=== PATIENT | female | born 1950 | race African-American/Black ===

== ENCOUNTER 2019-12-10 01:55 | Emergency (ER) | payer MEDICARE, MEDICAID ==
[~2019-12-10] VITALS: Ht 167.6 cm; Wt 98.0 kg
[2019-12-10 01:58] VITALS: BP 150/80
[2019-12-10] MEDS ORDERED: CYCLOBENZAPRINE 10MG TABLET PO ONE (02:30)
[2019-12-10] MEDS ORDERED: ACETAMINOPHEN 325MG TABLET PO ONE (02:30)
[2019-12-10] MEDS ORDERED: KETOROLAC 30MG/ML VIAL IM ONE (03:45)
== END 2019-12-10 05:03 | disposition home or self-care (01) ==
LOC: ER 01:55
DX: M79.602 Pain in left arm (principal); I10 Essential (primary) hypertension
CPT/HCPCS: 93005; 96372; 99283; J1885

== ENCOUNTER 2020-09-17 05:43 | Emergency (ER) | payer MEDICARE, MEDICAID ==
[~2020-09-17] VITALS: Ht 167.6 cm; Wt 90.0 kg
[2020-09-17] MEDS ORDERED: HYDR50CA MT (06:41)
[2020-09-17] MEDS ORDERED: HYDROXYZINE 25MG TABLET PO ONE (06:45)
[2020-09-17 07:30] VITALS: BP 160/89
== END 2020-09-17 08:34 | disposition home or self-care (01) ==
LOC: ER 05:43
DX: L30.9 Dermatitis, unspecified (principal); L29.9 Pruritus, unspecified; F41.9 Anxiety disorder, unspecified; F03.90 Unspecified dementia, unspecified severity, without behavioral disturbance, psychotic disturbance, mood disturbance, and anxiety; F32.9 Major depressive disorder, single episode, unspecified; I10 Essential (primary) hypertension; Z88.2 Allergy status to sulfonamides
CPT/HCPCS: 93005; 99283

== ENCOUNTER 2021-10-25 19:48 | Emergency (ER) | payer MEDICARE, MEDICAID ==
[~2021-10-25] VITALS: Ht 167.6 cm; Wt 94.4 kg
[~2021-10-25 19:48] MED LIST: HYDR50CA MT
[2021-10-25] MEDS ORDERED: MORPHINE SULFATE 4 MG/ML CPJ (NOT FOR IM USE) IV STA (20:18)
[2021-10-25 20:54] LABS: BASOPHILS % 0.3 % (0.0-2.0); EOSINOPHILS % 1.9 % (0.0-5.0); HEMATOCRIT. 38.6 % (36.0-48.0); HEMOGLOBIN. 12.4 g/dL (12.0-16.0); LYMPHOCYTES % 35.4 % (20.0-50.0); MEAN CORPUSCULAR HEMOGLOBIN 25.9 pg (28.0-32.0); MEAN CORPUSCULAR VOLUME 80.5 fL (81.0-99.0); MEAN PLATELET VOLUME 9.6 fl (7.4-10.4); MONOCYTES % 12.6 % (2.0-8.0); NEUTROPHILS % 49.8 % (40.0-76.0); PLATELET 160 x1000/uL (130-400); RED CELL DISTRIBUTION WIDTH 15.8 % (11.6-14.6)
[2021-10-25 21:02] LABS: CHLORIDE 107 mEq/L (98-107)
[2021-10-25] MEDS ORDERED: LABETALOL 5MG/ML SYR 20 MG/4 ML SYRINGE IV NR (21:07)
[2021-10-25] MEDS ORDERED: LABETALOL HCL VIAL 20 MG/4 ML VIAL IV ONE (21:15)
[2021-10-25 23:58] VITALS: BP 145/82
== END 2021-10-26 00:49 | disposition home or self-care (01) ==
LOC: ER 19:48 → CANBEDREQ 23:57 → ER 10-26 00:49
DX: R07.89 Other chest pain (principal); R51.9 Headache, unspecified; F41.9 Anxiety disorder, unspecified; I10 Essential (primary) hypertension; Z90.49 Acquired absence of other specified parts of digestive tract
CPT/HCPCS: 36415; 71045; 80053; 83880; 84484; 85025; 93005; 96374; 96375; 99285; J2270; J3490

== ENCOUNTER 2024-11-11 10:22 | Inpatient (IN) | payer MEDICARE, MEDICAID ==
[~2024-11-11] VITALS: Ht 154.9 cm; Wt 90.9 kg
[2024-11-11] MEDS: MORPHINE SULFATE 4 MG/ML INJ (FOR IV/IM USE) IV ONE (11:36)
[2024-11-11 12:20] LABS: BASOPHILS % 0.2 % (0.0-2.0); EOSINOPHILS % 2.4 % (0.0-5.0); HEMATOCRIT. 36.7 % (36.0-48.0); HEMOGLOBIN. 11.9 g/dL (12.0-16.0); LYMPHOCYTES % 32.4 % (20.0-50.0); MEAN CORPUSCULAR HGB CONC 32.4 g/dL (31.0-37.0); MEAN CORPUSCULAR VOLUME 80.2 fL (81.0-99.0); MONOCYTES % 12.5 % (2.0-8.0); NEUTROPHILS % 52.5 % (40.0-76.0); PLATELET 169 x1000/uL (130-400); RED BLOOD CELL COUNT 4.58 mill/uL (4.2-5.4); RED CELL DISTRIBUTION WIDTH 15.7 % (11.6-14.6); WHITE BLOOD COUNT 3.6 x1000/uL (4.5-11.0)
[2024-11-11 12:32] LABS: CARBON DIOXIDE 26 mEq/L (21-32); CHLORIDE 108 mEq/L (98-107); POTASSIUM 3.9 mEq/L (3.5-5.1); SODIUM 139 mEq/L (136-145)
[2024-11-11 12:33] LABS: CALCIUM 9.5 mg/dL (8.7-10.4)
[2024-11-11 12:38] LABS: CREATININE 0.9 mg/dL (0.6-1.0); GLUCOSE 98 mg/dL (70-105); UREA NITROGEN BLOOD 15 mg/dL (9-23)
[2024-11-11 12:39] LABS: TROPONIN I HIGH SENSITIVITY 11 ng/L (3.0-34)
[2024-11-11] MEDS: HYDRALAZINE 20MG/ML VIAL IV PRN (14:09)
[2024-11-11 15:12] LABS: TROPONIN I HIGH SENSITIVITY 11 ng/L (3.0-34)
[2024-11-11] MEDS ORDERED: ACETAMINOPHEN 325MG TABLET PO PRN (15:30)
[2024-11-11] MEDS ORDERED: DOCUSATE SODIUM 100MG CAPSULE PO PRN (15:30)
[2024-11-11] MEDS ORDERED: IPRATROPIUM/ALBUTEROL 0.5-3(2.5)MG/3ML NEB HHN PRN (15:30)
[2024-11-11] MEDS ORDERED: ONDANSETRON HCL 4MG/2ML INJ IV PRN (15:30)
[2024-11-11 16:00] VITALS: BP 141/73; PULSE 65; RESP 16; TEMP 36.7; O2SAT 100
[2024-11-11] MEDS ORDERED: NALOXONE HCL 0.4MG/ML VIAL IV PRN (17:00)
[2024-11-11] MEDS: HYDROCODONE/ACETAMINOPHEN 5/325MG TABLET PO PRN (17:42)
[2024-11-11 20:00] VITALS: BP 164/90; PULSE 50; RESP 11; TEMP 36.7; O2SAT 99
[2024-11-11] MEDS: ACETAMINOPHEN 325MG TABLET PO PRN (22:10)
[2024-11-11] MEDS: HYDRALAZINE HCL 25MG TABLET PO SCH (22:13)
[2024-11-11 23:05] LABS: CLARITY URINE CLEAR (CLEAR); COLOR URINE YELLOW (YELLOW); GLUCOSE URINE NEGATIVE (NEGATIVE); KETONES URINE NEGATIVE (NEGATIVE); LEUKOCYTE ESTERASE URINE 1+ (NEGATIVE); NITRITE URINE NEGATIVE (NEGATIVE); OCCULT BLOOD URINE NEGATIVE (NEGATIVE); PROTEIN URINE 1+ (NEGATIVE); SPECIFIC GRAVITY URINE 1.011 (1.005-1.030); UROBILINOGEN URINE 0.2 E.U./dL (0.2-1.0)
[2024-11-11 23:13] LABS: RBC URINE 0-2 /hpf (0-2); SQUAMOUS EPITHELIAL CELL URINE FEW /lpf (RARE/1+)
[2024-11-11 23:14] LABS: BACTERIA URINE NONE SEEN
[2024-11-11 23:18] LABS: *AMPHETAMINES SCREEN URINE NEGATIVE (NEGATIVE); *BARBITURATES SCREEN URINE NEGATIVE (NEGATIVE); *BENZODIAZEPINES SCREEN URINE NEGATIVE (NEGATIVE); *COCAINE SCREEN URINE NEGATIVE (NEGATIVE); CANNABINOID URINE SCREEN NEGATIVE (NEGATIVE); ECSTASY MDMA SCREEN URINE NEGATIVE (NEGATIVE); METHADONE URINE SCREEN NEGATIVE (NEGATIVE); OPIATES URINE SCREEN PRESUMPTIVE POSITIVE (NEGATIVE); PHENCYCLIDINE URINE SCREEN NEGATIVE (NEGATIVE)
[2024-11-11 23:30] VITALS: RESP 16
[2024-11-12] VITALS (7 sets, daily range): BP systolic 141–188; BP diastolic 75–98; PULSE 44–64; RESP 10–23; TEMP 36.7–36.9; O2SAT 96–100
[2024-11-12] MEDS: LORAZEPAM 0.5MG TABLET PO PRN (05:43)
[2024-11-12 06:59] LABS: BASOPHILS % 0.2 % (0.0-2.0); DIFFERENTIAL COMMENT 0; EOSINOPHILS % 2.4 % (0.0-5.0); HEMATOCRIT. 40.8 % (36.0-48.0); HEMOGLOBIN. 12.9 g/dL (12.0-16.0); LYMPHOCYTES % 38.3 % (20.0-50.0); MEAN CORPUSCULAR HEMOGLOBIN 25.5 pg (28.0-32.0); MEAN CORPUSCULAR HGB CONC 31.6 g/dL (31.0-37.0); MEAN CORPUSCULAR VOLUME 80.7 fL (81.0-99.0); MEAN PLATELET VOLUME 10.5 fl (7.4-10.4); NEUTROPHILS % 46.1 % (40.0-76.0); PLATELET 165 x1000/uL (130-400); RED BLOOD CELL COUNT 5.06 mill/uL (4.2-5.4); RED CELL DISTRIBUTION WIDTH 16.1 % (11.6-14.6); WHITE BLOOD COUNT 3.8 x1000/uL (4.5-11.0)
[2024-11-12 07:04] LABS: CHLORIDE 108 mEq/L (98-107); POTASSIUM 3.9 mEq/L (3.5-5.1); SODIUM 140 mEq/L (136-145)
[2024-11-12 07:05] LABS: CALCIUM 10.2 mg/dL (8.7-10.4); CARBON DIOXIDE 26 mEq/L (21-32)
[2024-11-12 07:10] LABS: UREA NITROGEN BLOOD 14 mg/dL (9-23)
[2024-11-12 07:11] LABS: GLUCOSE 99 mg/dL (70-105)
[2024-11-12 07:12] LABS: ALANINE AMINOTRANSFERASE 96 IU/L (10-49); ALBUMIN 4.2 g/dL (3.2-4.8); ASPARTATE AMINOTRANSFERASE 105 IU/L (<34)
[2024-11-12 07:13] LABS: BILIRUBIN DIRECT 0.2 mg/dL (<=3.0)
[2024-11-12 07:14] LABS: BILIRUBIN TOTAL 0.5 mg/dL (0.1-1.0); CREATINE KINASE MB FRACTION 0.9 ng/mL (0.5-3.6); PHOSPHORUS 2.8 mg/dL (2.5-4.9); PROTEIN TOTAL 8.2 g/dL (6.0-8.3)
[2024-11-12 07:26] LABS: INR 0.9; PROTHROMBIN TIME 10.1 sec (9.6-11.0)
[2024-11-12] MEDS: IOHEXOL-350 100 ML BOTTLE ONE (08:00)
[2024-11-13] VITALS (9 sets, daily range): BP systolic 140–176; BP diastolic 74–93; PULSE 57–78; RESP 11–18; TEMP 36.6–36.8; O2SAT 94–98
[2024-11-13] MEDS: LIDOCAINE 5% PATCH TOP SCH (09:45)
[2024-11-13] MEDS ORDERED: AMLODIPINE 5MG TABLET PO SCH (10:15)
[2024-11-13] MEDS: ASPIRIN 81MG TABLET PO SCH (12:07)
[2024-11-13] MEDS: AMLODIPINE 5MG TABLET PO SCH (21:29)
[2024-11-13] MEDS: ATORVASTATIN CALCIUM 20MG TABLET PO SCH (21:29)
[2024-11-14] VITALS (9 sets, daily range): BP systolic 133–169; BP diastolic 73–89; PULSE 60–66; RESP 15–23; TEMP 36.6–36.9; O2SAT 97–99
[2024-11-14] MEDS: LOSARTAN 50 MG TABLET PO SCH (11:57)
[2024-11-14] MEDS: CYCLOBENZAPRINE 10MG TABLET PO SCH (11:58)
[2024-11-15] VITALS: BP 160/82; PULSE 63; RESP 14; TEMP 36.6; O2SAT 98
[2024-11-15 02:21] VITALS: RESP 18
[2024-11-15 04:00] VITALS: BP 136/75; PULSE 62; RESP 14; TEMP 36.4; O2SAT 96
[2024-11-15 08:00] VITALS: BP 118/83; PULSE 68; RESP 18; TEMP 37.1; O2SAT 97
[2024-11-15] MEDS ORDERED: ASPI-1160 PO (09:03)
[2024-11-15] MEDS: LOSARTAN 50 MG TABLET PO SCH (09:03)
[2024-11-15] MEDS ORDERED: LOSA50TA41 PO (09:03)
[2024-11-15] MEDS ORDERED: AMLO5TAB88 PO (09:03)
[2024-11-15] MEDS ORDERED: ATOR20TA PO (09:03)
[2024-11-15 12:00] VITALS: BP 150/80; PULSE 64; RESP 19; TEMP 36.8; O2SAT 95
[2024-11-15 13:11] VITALS: BP 150/80; PULSE 64; TEMP 98.3; O2SAT 95
== END 2024-11-15 14:30 | disposition home health service (06) | DRG 206 ==
LOC: ER 11:54 → 3WST 12:36 → EDBEDREQTM 12:39 → EDBEDREQ 12:39 → ENRESERV 13:37
PROVIDERS: ADMIT Internal Medicine; ATTEND Internal Medicine
PROC: 5A09357 Assistance with Respiratory Ventilation, Less than 24 Consecutive Hours, Continuous Positive Airway Pressure (ICD-10-PCS; principal; 2024-11-14)
PROC: 5A09357 Assistance with Respiratory Ventilation, Less than 24 Consecutive Hours, Continuous Positive Airway Pressure (ICD-10-PCS; 2024-11-15)
DX: M94.0 Chondrocostal junction syndrome [Tietze] (principal); G45.9 Transient cerebral ischemic attack, unspecified; G44.209 Tension-type headache, unspecified, not intractable; D64.9 Anemia, unspecified; I10 Essential (primary) hypertension; S09.90XA Unspecified injury of head, initial encounter; D72.819 Decreased white blood cell count, unspecified; M71.20 Synovial cyst of popliteal space [Baker], unspecified knee; F41.9 Anxiety disorder, unspecified; R00.1 Bradycardia, unspecified; R79.89 Other specified abnormal findings of blood chemistry; Z88.0 Allergy status to penicillin; Z88.2 Allergy status to sulfonamides; Z91.81 History of falling; W18.30XA Fall on same level, unspecified, initial encounter; Y93.89 Activity, other specified; Y92.89 Other specified places as the place of occurrence of the external cause; Y99.8 Other external cause status
CPT/HCPCS: 36415; 70551; 71045; 71275; 80048; 80061; 80076; 80305; 81003; 82550; 82553; 82962; 83036; 83735; 83880; 84100; 84484; 85025; 85379; 93005; 93306; 93970; 94070; 94660; 96374; 99285; A4606; J0360; J2270; Q9967